=== PATIENT | female | born 1940 | race Caucasian/White ===

== ENCOUNTER 2016-12-16 16:24 | Emergency (ER) | payer MEDICARE, OTHER ==
[~2016-12-16] VITALS: Ht 152.4 cm; Wt 105.0 kg
[~2016-12-16 16:24] MED LIST: ACET-171 PO; ALBU2.5V4 INHALATION; CALCITRIOL PO; CARV6.252 PO; FUR20 PO; HYDR-4003 PO; ONDA4TAB6 PO; SERT50TA PO; ZYL100 PO; [UNRECOGNIZED DRUG - OTHER] PO
--- NOTE | 2016-12-16 16:33 | ED.REPORT ---
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 The patient's last known normal was at 1600. She came to the hospital for a dialysis appointment and began having slurred speech. The pt denies any recent surgical procedures, hx of brain aneurysm, or any black/tarry stools. Nursing Notes Stated Complaint: SLURRED SPEECH Nursing Notes Reviewed: Yes Allergies: Coded Allergies: Contrast Media (Verified Allergy, Severe, Anaphylaxis, 02/07/12) Shellfish (Verified Allergy, Severe, RASH, 02/07/12) codeine (Verified Allergy, Severe, Rash,Itching,, 02/07/12) Scheduled Allopurinol (Allopurinol) 100 Mg Tablet 100 MG PO DAILY Calcitriol (Rocaltrol) 0.25 Mcg Capsule 0.5 MCG PO DAILY Carvedilol (Carvedilol) 6.25 Mg Tablet 6.25 MG PO BID Furosemide (Furosemide) 20 Mg Tab 40 MG PO BID not on dialysis day Sertraline HCl (Zoloft) 50 Mg Tablet 50 MG PO DAILY Vit B Cplx #11/FA/C/Biot/Zn Ox (Dialyvite with Zinc Tablet) 1 Each Tablet 1 EACH PO DAILY Scheduled PRN Acetaminophen (Acetaminophen) 500 Mg Tablet 500 MG PO BID PRN PRN For Pain Albuterol Neb Soln (Albuterol Neb Soln) 2.5 Mg/3 Ml Vial.neb 2.5 MG INHALATION Q4H PRN PRN For Shortness of Breath Hydrocodone-Acetaminophen 5-325 mg (Hydrocodone-Acetaminophen 5-325 mg) 1 Each Tablet 1 EACH PO PRN PRN PRN For Pain Ondansetron (Zofran) 4 Mg Tablet 4 MG PO TID PRN PRN For Nausea General Time Seen by Provider: 16:35 Chief Complaint Slurred speech Hx Obtained From: Patient, Spouse Arrived By: Ambulance Sudden in Onset?: Yes Onset Occurred: 31 - 45 minutes ago Symptom Duration: Since onset Recent Healthcare: No recent hospitalization, Recent doctor visit Similar Sx Previous: No Risk Factors TPA Administration/Criteria Stroke Thrombolytic Therapy : TPA Considered: Yes Neurologist Contacted: Yes Disc Risk/Benefit/Alternatives: Yes Consent Obtained: Patient, Spouse Intensive Monitoring Performed: Yes TPA Administered Intravenously: Yes Inclusion Criteria: Measurable neuro deficit, Onset < 3hr before Tx, 18 years or older NIH Stroke Scale Level of Consciousness: Alert and responsive (0) Ask Month & Age: Both questions right (0) Horizontal EO Movements: None (0) Visual Link: No visual loss (0) Facial Palsy: Partial paral, lower (2) Right Arm Motor Drift (10s): No drift 10 sec (0) Left Arm Motor Drift (10s): No drift 10 sec (0) Right Leg Motor Drift (5s): No drift 5 sec (0) Left Leg Motor Drift (5s): Drift, not touch bed (1) Limb Ataxia FNF/Heel-Washburn: No ataxia (0) Sensation (Arms/Legs/Face): No sensory loss (0) Language Aphasia: Loss fluency ID matls (1) Dysarthria: Severe slur unintel (2) Extinction/Inattention: No exctinct/inattent (0) NIHSS Score: 6 Time NIHSS Performed: 16:46 Date NIHSS Performed: Dec 16, 2016 CVA Risk Stratification Age >60 Diabetes mellitus RF Statements: Risk factors reviewed Past Medical History Past Medical History Stage III vulvar squamous cell carcinoma, status post chemoradiotherapy, 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, status post left nephrectomy, 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 Physical Exam Initial Vital Signs Vital Signs (First) Date Time Temp Pulse Resp B/P Pulse Ox O2 Delivery O2 Flow Rate FiO2 12/16/16 17:56 36.5 64 20 192/61 95 Room Air reviewed Initial VS: Reviewed General/Constitutional: Awake, Cooperative Appearance / Presentation: Positive: Obese Head / Eyes: Atraumatic, Normocephalic Respiratory / Chest: Atraumatic, Breath sounds NL, Breath sounds = bilat, No respiratory distress Cardiovascular: Heart rate NL, Regular rhythm, Heart sounds NL Speech: Positive: Expressive aphasia, Receptive aphasia, Slow, Slurred Cranial Nerve Deficit: Positive: 7 - lower/asymetric smile Neck: Atraumatic, Supple Upper Extremity / MS: Atraumatic, Inspection NL, No deformity Lower Extremity / Pelvis / MS: Atraumatic, Inspection NL, No deformity Skin: No rash, Warm, Dry Interpretation & Diagnostics Lab Results Interpretation Result Diagram: 12/16/16 1631 12/16/16 1631 Test 12/16/16 16:31 12/16/16 16:40 White Blood Count 5.8th/mm3 (3.8-10.1) Red Blood Count 3.47mil/mm3 (3.90-5.20) Hemoglobin 11.5g/dL (12.0-15.6) Hematocrit 35.2% (35.0-46.0) Mean Corpuscular Volume 101.4fL (81-100) Mean Corpuscular Hemoglobin 33.1pg (27.0-35.0) Mean Corpuscular Hemoglobin Concent 32.7% (32.0-37.0) Red Cell Distribution Width 12.8% (12.3-15.4) Platelet Count 227bil/L (150-400) Neutrophils (%) (Auto) 48.7% (40-74) Lymphocytes (%) (Auto) 35.9% (14-46) Monocytes (%) (Auto) 8.9% (4-12) Eosinophils (%) (Auto) 6.0% (0-5) Basophils (%) (Auto) 0.3% (0-3) Prothrombin Time 11.0sec (8.1-12.5) Prothromb Time International Ratio 1.03ratio Activated Partial Thromboplast Time 29.2sec (22.8-33.0) Sodium Level 133mEq/L (134-144) Potassium Level 5.6mEq/L (3.5-5.2) Chloride Level 94mEq/L (97-108) Carbon Dioxide Level 21mmol/L (18-29) Blood Urea Nitrogen 43mg/dL (8-27) Creatinine 5.46mg/dL (0.57-1.00) Estimat Glomerular Filtration Rate 11mL/min (>59) Glucose Level 93mg/dL (60-99) Calcium Level 9.9mg/dL (8.5-10.1) Total Bilirubin 0.4mg/dL (0.0-1.2) Aspartate Amino Transf (AST/SGOT) 15U/L (0-50) Alanine Aminotransferase (ALT/SGPT) 7U/L (0-32) Alkaline Phosphatase 56U/L (25-165) Troponin T < 0.010ug/L (0.0-0.011) Total Protein 7.7g/dL (6.4-8.4) Albumin 3.9g/dL (3.4-5.0) Hold Purple Top Tube Received (Received) Hold Blue Top Tube Received (Received) Hold Red Top Tube Received (Received) Hold [place] Top Tube Received (Received) Hold [place] Top Tube Received (Received) ECG Interpretation Time: 17:06 Interpreted by: ED physician Normal ECG Interpretation: Normal sinus rhythm (rate 60) CT Head Interpretation IMPRESSION: 1. No acute intracranial findings. 2. Mild findings likely associated with chronic microvascular ischemic changes. These findings were discussed with Dr. Pandey at 4:40 PM on 12/16/16. This study fulfills neurological imaging criteria for inclusion or exclusion of acute stroke therapies based on available published neurological guidelines. Dictated by: Rosenda Morelos M.D. on 12/16/2016 at 16:37 Approved by: Rosenda Morelos M.D. on 12/16/2016 at 16:41 Study: Head CT no contrast Interpretation / Wet Read by: Interpret - Radiologist Re-Eval/Medical Decision Med Decision/Clinical Course 76-year-old female with end-stage renal disease due for dialysis today. On arrival for her dialysis appointment she experienced the onset of a aphasia and left facial droop. She was brought to the emergency department, arriving approximately 20 minutes after her 4 PM last known normal time. Her stroke scale was 6. Other than hypertension there was no contraindication and her blood pressure responded well to a nicardipine drip. After discussing risks and benefits with the patient and her including quoting an approximately 6% risk of major complications, she requested TPA administration. We confirmed a normal INR and normal platelets prior to starting TPA. The nicardipine drip was discontinued with her blood pressure came down well below the initial 180 mm systolic value. The patient has a contrast allergy so we are unable to do a CT angiogram. She has tolerated TPA well how however has not exhibited any improvement. We have no neurology coverage here and plan to transfer her to [facility]. Re-Evaluation/Progress : Time of Eval: 16:54 Re-Evaluation/Progress Note: NIH stroke scale performed. Counseled pt and family regarding TPA administration. Pt agrees to take TPA. She is not on any blood thinners. Plan to transfer to [facility]. 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 Maia Bernstein, [facility] neurologist. Counseled Regarding: Diagnosis, Lab results, Need for transfer Discharge & Departure Impression: Primary Impression: CVA (cerebral vascular accident) CVA mechanism: unspecified Qualified Code: I63.9 - Cerebral infarction, unspecified Disposition: Transfer, Acute Care Facility Receiving Hospital: [facility] Accepting MD Magnus Gar Transfer Accepted: Yes Transfer Accepted at: 16:38 Transfer Reason: Higher level of care Spoke with: Specialty physician Patient Status: Stable Patient Informed: Yes Discharge Condition All VS Reviewed: Yes Condition: Stable Referrals: Cl Samayoa MD (PCP) Crit Care Except Billable Proc Time Spent: 30-74 minutes Services Performed: Patient management by me, Time spent at bedside, Reviewing test results, Reviewing imaging, Discussing patient care, Documentation in record, Time with fam/surrogate Scribe Attestation Portion of this note were transcribed by Michelle Villarreal. I, Dr. Pandey, personally performed the history, physical exam, and medical decision-making: I reviewed and confirmed the accuracy for the information in the transcribed note. Signed by: yvon Strong, 12/16/16 1800 copies to: Cl Samayoa MD, Donald L MD Dec 16, 2016 16:33 Michelle Villarreal Dec 16, 2016 16:41
[2016-12-16 16:41] LABS: BASOPHILS % (AUTO) 0.3 % (0-3); MONOCYTES % (AUTO) 8.9 % (4-12); Mean Corpuscular Hemoglobin 33.1 pg (27.0-35.0); Mean Corpuscular Volume 101.4 fL (81-100); NEUTROPHILS % (AUTO) 48.7 % (40-74); Platelet Count 227 bil/L (150-400)
--- NOTE | 2016-12-16 16:42 | DRSVH ---
PROCEDURE: CT BRAIN (TPA) ([id number]) INDICATIONS: Stroke TECHNIQUE: Noncontrast 4.5 mm thick angled axial sections acquired from the foramen magnum to the vertex, with c oronal reformats. COMPARISON: None. FINDINGS: Image quality: Excellent. CSF spaces: Basal cisterns are patent. No extra-axial fluid collections. The ventricles are symmet mel in size and shape. Brain: No intracranial bleeds or masses. There is cerebral volume loss for age, with resultant vent ricular and sulcal prominence. There are periventricular and deep white matter chronic small vessel ischemic changes. There is intracranial internal carotid artery atherosclerosis. Skull and face: Calvarium and visualized facial bones appear intact, without suspicious lesions. Sinuses: Visualized sinuses and mastoids are clear. IMPRESSION: 1. No acute intracranial findings. 2. Mild findings likely associated with chronic microvascular ischemic changes. These findings were d iscussed with Dr. Pandey at 4:40 PM on 12/16/16. This study fulfills neurological imaging criteria for inclusion or exclusion of acute stroke therapie s based on available published neurological guidelines. Dictated by: Rosenda Morelos M.D. on 12/16/2016 at 16:37 Approved by: Rosenda Morelos M.D. on 12/16/2016 at 16:41
[2016-12-16] MEDS ORDERED: Labetalol 5 mg/mL 20 mL Inj IV ONE (16:55)
[2016-12-16] MEDS ORDERED: NiCARdipine 25 mg/250 mL D5W IV SCH ×2 (17:00)
[2016-12-16 17:03] LABS: INR 1.03 ratio
[2016-12-16 17:11] LABS: TROPONIN T < 0.010 ug/L (0.0-0.011)
[2016-12-16] MEDS ORDERED: Alteplase (No Charge) 1 mg/mL Syringe IV ONE (17:25)
[2016-12-16] MEDS ORDERED: Alteplase (TPA) Inj 81 MG in IV Premix 1 EACH IV ONE (17:25)
[2016-12-16] MEDS ORDERED: VIT1TABL7 PO (17:48)
[2016-12-16] MEDS ORDERED: CALC0.257 PO (17:48)
[2016-12-16 17:56] VITALS: BP 192/61; PULSE 64; RESP 20; O2SAT 95
== END 2016-12-16 17:56 | disposition short-term general hospital (02) ==
LOC: SED 16:24
DX: I63.9 Cerebral infarction, unspecified (principal); I12.0 Hypertensive chronic kidney disease with stage 5 chronic kidney disease or end stage renal disease; N18.5 Chronic kidney disease, stage 5; I48.0 Paroxysmal atrial fibrillation; D63.1 Anemia in chronic kidney disease; E78.5 Hyperlipidemia, unspecified; J45.909 Unspecified asthma, uncomplicated; Z90.89 Acquired absence of other organs; Z87.39 Personal history of other diseases of the musculoskeletal system and connective tissue; Z85.820 Personal history of malignant melanoma of skin; Z87.891 Personal history of nicotine dependence; Z79.51 Long term (current) use of inhaled steroids; Z88.5 Allergy status to narcotic agent
CPT/HCPCS: 36415; 70450; 80053; 82948; 84484; 85025; 85610; 85730; 93005; 96374; 96375; 99291; J2997